=== PATIENT | female | born 1995 | race Caucasian/White ===

== ENCOUNTER 2017-08-01 18:16 | Emergency (ER) | payer OTHER ==
[~2017-08-01] VITALS: Ht 154.9 cm; Wt 44.5 kg
[~2017-08-01 18:16] MED LIST: ACYCLOVIR 400400 MG PO; ADVAIR 100-501 EACH INH; ALDARA1 EACH TP; AMOXIL 875 MG875 M1 PO; BACTRIM DS TAB1 EACH PO; BACTROBAN22 GM TP; CLOTRIM ANTIFUN15 GM TP; DIFLUCAN150 MG PO; EPIPEN 2-P0.3 MG/0.3; EPIPEN 2-P0.3 MG/0.3 IM; ERYTHROMYCIN500 MG PO; HYDROCODON-ACE1 EAC7 PO; IBUPROFEN 400400 M2 PO; IBUPROFEN 600600 M1 PO; IBUPROFEN 800800 M1 PO; KEFLEX500 MG PO; KETOCONAZOLE60 GM TP; LIDOCAINE VISC100 M1 TOP; MELATONIN3 MG PO; NAPROSYN500 MG PO; NOHOMEMEDICATIONS; PENICILLIN VK250 MG PO; PREDNISONE 20 M20 M1 PO; ROBAXIN500 MG PO; TESSALON PERLE100 MG PO; TRINATE TABLET1 TAB PO; VENTOLIN HFA 1818 GM; VENTOLIN HFA INH8 GM INH; VISTARIL 25 MG25 M1 PO; [UNRECOGNIZED DRUG - REMARK]; [UNRECOGNIZED DRUG - REMARK] INH
[2017-08-01 18:32] VITALS: BP 125/85
[2017-08-01] MEDS ORDERED: VISTARIL 25 MG25 M1 PO (18:35)
[2017-08-01] MEDS ORDERED: ALBUTEROL2.5 MG/31 INH (18:36)
== END 2017-08-01 19:42 | disposition home or self-care (01) ==
LOC: M.ERS 18:16
DX: S89.82XA Other specified injuries of left lower leg, initial encounter (principal); J45.909 Unspecified asthma, uncomplicated; F41.9 Anxiety disorder, unspecified; Z88.0 Allergy status to penicillin; Z91.02 Food additives allergy status; X58.XXXA Exposure to other specified factors, initial encounter; Y93.89 Activity, other specified; Y92.89 Other specified places as the place of occurrence of the external cause; Y99.0 Civilian activity done for income or pay

== ENCOUNTER 2017-11-18 17:58 | Emergency (ER) | payer OTHER ==
[~2017-11-18] VITALS: Ht 160 cm; Wt 44.5 kg
[~2017-11-18 17:58] MED LIST changes: +ALBUTEROL2.5 MG/31 INH
[2017-11-18] MEDS ORDERED: VENTOLIN HFA INH8 GM INH (18:10)
[2017-11-18] MEDS ORDERED: DIPHENHIST50 MG PO (18:22)
[2017-11-18] MEDS ORDERED: PREDNISONE50 MG PO (18:22)
[2017-11-18 18:38] VITALS: BP 104/76
== END 2017-11-18 18:39 | disposition home or self-care (01) ==
LOC: M.ERS 17:58
DX: L23.9 Allergic contact dermatitis, unspecified cause (principal); F41.9 Anxiety disorder, unspecified; J45.909 Unspecified asthma, uncomplicated; Z88.0 Allergy status to penicillin; Z91.018 Allergy to other foods

== ENCOUNTER 2018-03-24 15:00 | Emergency (ER) | payer OTHER, MEDICAID ==
[~2018-03-24] VITALS: Ht 160 cm; Wt 44.5 kg
[~2018-03-24 15:00] MED LIST changes: +DIPHENHIST50 MG PO; +PREDNISONE50 MG PO
[2018-03-24 15:46] LABS: ABSOLUTE BASOPHILS 0.1 thou/uL (0.0-0.2); ABSOLUTE EOSINOPHILS 0.3 thou/uL (0.0-0.7); ABSOLUTE MONOCYTES 0.5 thou/uL (0.0-1.2); ABSOLUTE NEUTROPHILS 4.4 thou/uL (1.6-8.1); BASOPHILS 0.7 %; EOSINOPHILS 3.5 %; HEMATOCRIT 45.3 % (37.0-47.0); HEMOGLOBIN 15.2 gm/dL (12.0-15.0); LYMPHOCYTES 36.1 %; MCHC 33.6 g/dL (28.0-37.0); MCV 89.2 fL (80.0-100.0); MONOCYTES 6.1 %; MPV 8.1 fl. (7.2-11.1); NUCLEATED RBCS 0 /100WBC; PLATELET COUNT* 293 thou/uL (150-400); POLYS 53.6 %; RBC 5.07 mil/uL (4.20-5.00); RDW-CV 13.8 % (10.5-14.5); WBC 8.2 thou/uL (4.0-11.0)
[2018-03-24 15:52] LABS: CREATININE 0.7 mg/dL (0.6-1.3); POTASSIUM 3.6 mmol/L (3.5-5.1)
[2018-03-24 15:57] LABS: ALBUMIN 4.4 g/dL (3.4-5.0); TOTAL BILIRUBIN 0.3 mg/dL (<0.1-1.0); TOTAL PROTEIN 8.2 g/dL (6.4-8.2)
[2018-03-24 16:08] LABS: URINE BILIRUBIN NEGATIVE (Negative); URINE BLOOD 1+ (Negative); URINE CLARITY CLEAR; URINE COLOR YELLOW; URINE GLUCOSE-RANDOM NEGATIVE (Negative); URINE KETONES NEGATIVE (Negative); URINE LEUKOCYTES-REFLEX NEGATIVE (Negative); URINE NITRITE-REFLEX NEGATIVE (Negative); URINE PROTEIN NEGATIVE (Negative); URINE SPECIFIC GRAVITY 1.025 (1.005-1.030); URINE UROBILINOGEN 0.2 E.U./dl (0.2-1.0)
[2018-03-24 16:14] LABS: SQUAMOUS >10 Many /LPF (0-3)
[2018-03-24 16:15] LABS: URINE RBC 0-2 Rare /HPF (0-2); URINE WBC-REFLEX 0-5 Rare /HPF (0-5)
[2018-03-24 16:16] LABS: BACTERIA-REFLEX 1-9 Few /HPF (None Seen); CRYSTALS None Seen /LPF (None Seen); MUCUS 0-3 Light strn/LPF (None Seen)
[2018-03-24] MEDS ORDERED: ONDANSETRON HCL4 M2 PO (16:48)
[2018-03-24] MEDS ORDERED: MACROBID 100 M100 M2 PO (16:48)
[2018-03-24] MEDS ORDERED: FLAGYL500 MG PO (16:50)
[2018-03-24 16:54] VITALS: BP 133/77
== END 2018-03-24 16:55 | disposition home or self-care (01) ==
LOC: M.ERS 15:00
PROVIDERS: Nurse Practitioner Family
DX: N39.0 Urinary tract infection, site not specified (principal); R11.0 Nausea; R42 Dizziness and giddiness; F17.200 Nicotine dependence, unspecified, uncomplicated; J45.909 Unspecified asthma, uncomplicated; F41.9 Anxiety disorder, unspecified; Z98.890 Other specified postprocedural states; Z88.0 Allergy status to penicillin; Z91.018 Allergy to other foods

== ENCOUNTER 2018-11-06 00:10 | Emergency (ER) | payer OTHER, MEDICAID ==
[~2018-11-06] VITALS: Ht 160 cm; Wt 51.3 kg
[~2018-11-06 00:10] MED LIST changes: +FLAGYL500 MG PO; +MACROBID 100 M100 M2 PO; +ONDANSETRON HCL4 M2 PO
[2018-11-06] MEDS ORDERED: PRENATAL (00:30)
[2018-11-06 00:35] LABS: ABSOLUTE EOSINOPHILS 0.3 thou/uL (0.0-0.7); ABSOLUTE LYMPHOCYTES 2.4 thou/uL (0.8-5.3); ABSOLUTE MONOCYTES 0.6 thou/uL (0.0-1.2); ABSOLUTE NEUTROPHILS 4.9 thou/uL (1.6-8.1); BASOPHILS 0.4 %; EOSINOPHILS 3.9 %; HEMATOCRIT 37.9 % (37.0-47.0); HEMOGLOBIN 12.9 gm/dL (12.0-15.0); LYMPHOCYTES 29.3 %; MCH 29.7 pg (26.0-34.0); MCHC 34.1 g/dL (28.0-37.0); MCV 87.2 fL (80.0-100.0); MPV 7.2 fl. (7.2-11.1); NUCLEATED RBCS 0 /100WBC; PLATELET COUNT* 301 thou/uL (150-400); POLYS 59.4 %; RBC 4.35 mil/uL (4.20-5.00); RDW-CV 13.9 % (10.5-14.5); WBC 8.2 thou/uL (4.0-11.0)
[2018-11-06 00:57] LABS: URINE BILIRUBIN NEGATIVE (Negative); URINE BLOOD 2+ (Negative); URINE CLARITY CLOUDY; URINE COLOR YELLOW; URINE GLUCOSE-RANDOM NEGATIVE (Negative); URINE KETONES NEGATIVE (Negative); URINE LEUKOCYTES-REFLEX NEGATIVE (Negative); URINE NITRITE-REFLEX NEGATIVE (Negative); URINE PROTEIN NEGATIVE (Negative); URINE UROBILINOGEN 0.2 E.U./dl (0.2-1.0)
[2018-11-06 01:06] LABS: CALCIUM 8.9 mg/dL (8.5-10.1); CREATININE 0.8 mg/dL (0.6-1.3); POTASSIUM 3.4 mmol/L (3.5-5.1)
[2018-11-06 01:11] LABS: ALBUMIN 3.9 g/dL (3.4-5.0); TOTAL BILIRUBIN 0.2 mg/dL (<0.1-1.0)
[2018-11-06 04:18] VITALS: BP 112/66
== END 2018-11-06 04:20 | disposition home or self-care (01) ==
LOC: M.ERS 00:10
PROVIDERS: Emergency Medicine
DX: O20.0 Threatened abortion (principal); O99.511 Diseases of the respiratory system complicating pregnancy, first trimester; F41.9 Anxiety disorder, unspecified; Z98.890 Other specified postprocedural states; Z3A.12 12 weeks gestation of pregnancy; Z91.018 Allergy to other foods; Z88.0 Allergy status to penicillin